=== PATIENT | male | born 1985 | race African-American/Black ===

== ENCOUNTER 2016-12-22 20:50 | Emergency (ER) | payer SELFPAY ==
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
== END 2016-12-22 22:30 | disposition left against medical advice (07) ==
LOC: EMR 22:29
DX: Z04.3 Encounter for examination and observation following other accident (principal); Z53.1 Procedure and treatment not carried out because of patient's decision for reasons of belief and group pressure
CPT/HCPCS: 99281